=== PATIENT | female | born 1980 | race Caucasian/White ===

== ENCOUNTER 2018-07-14 09:22 | Outpatient (CLI) | payer BC ==
--- NOTE | 2018-07-14 09:54 | RAD ---
CHEST PA AND LATERAL: History: 37-year-old female with history of bronchitis, cough for three weeks. Concern for pneumonia. FINDINGS: Heart size is normal. The lungs are clear. No pneumonia, edema, or pleural effusion. IMPRESSION: No acute intrathoracic disease. No evidence for pneumonia. POS: [facility]
== END 2018-07-14 09:23 | disposition home or self-care (01) ==
LOC: BICRAD 09:22
PROVIDERS: ATTEND Physician Assistant
DX: J40 Bronchitis, not specified as acute or chronic (principal); E00.2 Congenital iodine-deficiency syndrome, mixed type; Z87.898 Personal history of other specified conditions; Z86.39 Personal history of other endocrine, nutritional and metabolic disease
CPT/HCPCS: 36415; 71046; 80053; 80061; 82306; 82607; 83036; 84443; 85025